=== PATIENT | male | born 1985 | race Caucasian/White ===

== ENCOUNTER 2020-12-30 08:39 | Emergency (ER) | payer OTHER ==
[~2020-12-30] VITALS: Ht 175.3 cm; Wt 63.6 kg
[2020-12-30] MEDS ORDERED: FLUORESCEIN SODIUM 1 MG STRIP OD ONE (10:30)
[2020-12-30 11:08] VITALS: BP 110/55
== END 2020-12-30 11:10 | disposition home or self-care (01) ==
LOC: EMS 08:42
DX: H57.11 Ocular pain, right eye (principal)
CPT/HCPCS: 99283